=== PATIENT | male | born 1990 | race Caucasian/White ===

== ENCOUNTER 2017-04-01 05:30 | Emergency (ER) | payer MEDICAID, OTHER, SELFPAY ==
[~2017-04-01] VITALS: Ht 185.4 cm; Wt 145.4 kg
[2017-04-01] MEDS ORDERED: OMEP20CA3 PO (05:36)
[2017-04-01] MEDS ORDERED: predniSONE 20 MG TAB PO ONE (06:15)
[2017-04-01] MEDS ORDERED: AZITHROMYCIN 250 MG TAB PO ONE (06:15)
[2017-04-01] MEDS: IPRATROPIUM 0.5MG/ALBUTEROL 2.5MG INH SOL UD 3ML (DUONEB)(J7620) NEB PRN ×2 (06:22→06:27)
[2017-04-01 06:44] VITALS: BP 143/89
[2017-04-01] MEDS ORDERED: AZIT-12 PO (06:49)
[2017-04-01] MEDS ORDERED: PRED20TA PO (06:49)
[2017-04-01] MEDS ORDERED: VENTAER IN (06:49)
--- NOTE | 2017-04-01 07:55 | REP ---
PA and lateral chest: There are no comparisons. The lung hutson are clear. The cardiac size is normal The austyn, mediastinum, and bony thorax are unremarkable. Impression: Negative PA and lateral chest. Signed by Panfilo Vazquez MD 04/01/2017 07:47 A
== END 2017-04-01 06:53 | disposition home or self-care (01) ==
LOC: M ED 05:30
DX: J20.9 Acute bronchitis, unspecified (principal); J06.9 Acute upper respiratory infection, unspecified; K21.9 Gastro-esophageal reflux disease without esophagitis; Z82.5 Family history of asthma and other chronic lower respiratory diseases; Z79.899 Other long term (current) drug therapy

== ENCOUNTER → 2017-05-07 | Outpatient (CLI) | payer MEDICAID | LOC: M RAD 15:23 | DX: J34.2 Deviated nasal septum (principal) | CPT/HCPCS: 70486 ==

== ENCOUNTER → 2017-05-23 | Outpatient (CLI) | payer OTHER | LOC: M SLEEP 20:02 | DX: G47.30 Sleep apnea, unspecified (principal) | CPT/HCPCS: 95810 ==

== ENCOUNTER → 2017-06-10 | Outpatient (CLI) | payer OTHER | LOC: M SLEEP 20:00 | DX: G47.33 Obstructive sleep apnea (adult) (pediatric) (principal) | CPT/HCPCS: 95811 ==

== ENCOUNTER → 2017-08-14 | Outpatient (REF) | payer OTHER ==
[2017-08-19 00:06] LABS: E001-IgE Cat Epith/Dander 0.24 kU/L (Class 0/I); E005-IgE Dog Dander 0.17 kU/L (Class 0/I); G002-IgE Bermuda Grass 2.01 kU/L (Class III); M001-IgE Penicillium chrysogen < 0.10 kU/L (Class 0); M002 IgE Cladosporium herbaru < 0.10 kU/L (Class 0); M003 IgE Aspergillus fumigatu < 0.10 kU/L (Class 0); M006-IgE Alternaria alternata < 0.10 kU/L (Class 0); T001-IgE Maple/Box Elder 0.38 kU/L (Class I); T003-IgE Common Silver Birch 1.38 kU/L (Class II); T006-IgE Cedar, Mountain 0.15 kU/L (Class 0/I); T007-IgE Oak, White < 0.10 kU/L (Class 0); T008-IgE Elm, American < 0.10 kU/L (Class 0); T015-IgE Ash, White < 0.10 kU/L (Class 0); T041-IgE Hickory, White < 0.10 kU/L (Class 0); T070-IgE White Mulberry < 0.10 kU/L (Class 0); W001-IgE Ragweed, Short 1.11 kU/L (Class II); W009-IgE Plantain, English 0.11 kU/L (Class 0/I); W014-IgE Pigweed, Rough < 0.10 kU/L (Class 0); W018-IgE Sheep Sorrel 0.11 kU/L (Class 0/I)
== END ==
LOC: M LAB REF 13:20
DX: R09.82 Postnasal drip (principal)
CPT/HCPCS: 82785

== ENCOUNTER 2017-11-25 04:55 | Emergency (ER) | payer OTHER ==
[2017-11-25] MEDS: NS 1,000 ML IV ×2 (05:15)
[2017-11-25] MEDS: METOCLOPRAMIDE INJ 10MG/2ML VIAL (J2765) IV ×2 (05:45)
[2017-11-25] MEDS: MORPHINE 10 MG/ML 1ML VIAL (J2270) IV ×2 (05:45)
[2017-11-25] MEDS: GASTROGRAFIN SOLUTION 30ML PO ×4 (06:00→06:30)
[2017-11-25 06:18] LABS: BASO % 0.3 % (0.0-1.0); EOS # 0.1 10^3/uL (0.0-0.50); EOS % 1.5 % (0.0-3.0); HEMOGLOBIN 13.8 g/dl (13.5-17.5); IMMATURE GRANULOCYTE % 0.3 % (0-3.0); LYMPH # 1.7 10^3/uL (1.5-6.5); LYMPH % 28.1 % (24.0-44.0); MEAN CORPUSCULAR HEMOGLOBIN 29.1 pg (27.0-33.0); MEAN CORPUSCULAR HGB CONC 33.7 g/dl (32.0-36.5); MEAN CORPUSCULAR VOLUME 86.3 fl (80.0-96.0); MONO # 0.6 10^3/uL (0.0-0.8); MONO % 9.5 % (0.0-5.0); NEUTROPHILS # 3.7 10^3/uL (1.8-7.7); NEUTROPHILS % 60.3 % (36.0-66.0); PLATELET COUNT, AUTOMATED 193 10^3/uL (150-450); RED BLOOD COUNT 4.75 10^6/uL (4.30-6.10); RED CELL DISTRIBUTION WIDTH 12.8 % (11.5-14.5); WHITE BLOOD COUNT 6.1 10^3/uL (4.0-10.0)
[2017-11-25 06:33] LABS: ALBUMIN 3.3 GM/DL (3.2-5.2); ALKALINE PHOSPHATASE 94 U/L (45-117); ALT/SGPT 69 U/L (12-78); ANION GAP 6 MEQ/L (8-16); AST/SGOT 38 U/L (7-37); BILIRUBIN,DIRECT 0.2 MG/DL (0.0-0.2); BLOOD UREA NITROGEN 10 MG/DL (7-18); CALCIUM LEVEL 8.4 MG/DL (8.5-10.1); CARBON DIOXIDE LEVEL 29 MEQ/L (21-32); CHLORIDE LEVEL 107 MEQ/L (98-107); CREATININE FOR GFR 0.95 MG/DL (0.70-1.30); GLOMERULAR FILTRATION RATE > 60.0 (>60); GLUCOSE, FASTING 137 MG/DL (70-100); LIPASE 82 U/L (73-393); POTASSIUM SERUM 3.5 MEQ/L (3.5-5.1); SODIUM LEVEL 142 MEQ/L (136-145); TOTAL PROTEIN 7.4 GM/DL (6.4-8.2)
[2017-11-25] MEDS: GI COCKTAIL 50ML BTL(HYOSCYAMINE/MAALOX/LIDOCAINE VISCOUS)(1:3:1) PO ×2 (06:45)
[2017-11-25] MEDS: PANTOPRAZOLE 40MG INJ (PROTONIX) (C9113) IV ×2 (06:45)
[2017-11-25] MEDS ORDERED: ISOVUE-370 76% 100ML VIAL (Q9967) As Ordered ×2 (07:15)
[2017-11-25] MEDS: SUCRALFATE SUSP 1GM/10ML UD PO ×2 (07:40)
== END 2017-11-25 09:59 | disposition home or self-care (01) ==
LOC: M ED 04:55
DX: R10.13 Epigastric pain (principal); K21.9 Gastro-esophageal reflux disease without esophagitis
CPT/HCPCS: C9113

== ENCOUNTER → 2018-12-11 | Outpatient (CLI) | payer OTHER ==
[~2018-12-11] MED LIST: AZIT-12 PO; MONT10TA2; OMEP20CA4 PO; PEPC1TAB5 PO; PRED20TA PO; RANI150T; SUCR1SS PO; VENTAER IN
--- NOTE | 2018-12-12 09:06 | REP ---
MRI of the thoracic spine without contrast Clinical indication: Pain and thoracic spine. Comparison: None Technique: MRI of the thoracic spine was performed utilizing an sagittal T1 72 and STIR and axial T1 and T2 weighted imaging. No intravenous contrast was administered. Findings: There is patient motion artifact which degrades image quality and decreases the sensitivity of the study. Within this limitation, there is no gross signal abnormality within the visualized spinal cord. There is loss of thoracic kyphosis. There is normal alignment. There are multilevel disc bulges throughout the thoracic spine, most notably at T2-T3, T4-T5, T5-T6 and T8-T9. There is no bone marrow edema. The paraspinal soft tissues are within normal limits. C7-T1, T1-T2, T2-T3: No significant spinal canal stenosis or neural foraminal compromise. T3-T4, T4-T5: Central disc protrusion abutting the ventral thecal sac. T5-T6, T6-T7: Central disc protrusion indenting the ventral thecal sac. T7-T8: Small central disc protrusion. T8-T9: Right paracentral disc protrusion effacing the right anterolateral thecal sac, narrowing of the spinal canal and partially effacing the exiting nerve root. T9-T10: T10-T11, T11-T12, T12-L1: No significant spinal canal stenosis or neural foraminal compromise. Impression: Patient motion artifact which degrades image quality and decreases the sensitivity of the study. Within this limitation, no gross signal abnormality within the spinal cord. Multilevel thoracic spondylosis most notably at T8-T9 with right paracentral disc protrusion effacing of the anterolateral thecal sac, narrowing the spinal canal and partially effacing the right exiting nerve root. Central disc protrusions at T3-T8. Electronically Signed by Jose Kwan MD 12/12/2018 08:57 A
== END ==
LOC: M RAD 18:00
PROVIDERS: ATTEND Family Medicine
DX: M51.24 Other intervertebral disc displacement, thoracic region (principal)

== ENCOUNTER → 2019-01-15 | Outpatient (REF) | payer OTHER, MEDICAID ==
[2019-01-15 12:06] LABS: APPEARANCE, URINE CLEAR (CLEAR); BACTERIA, URINE AUTO NEGATIVE (NEGATIVE); BILIRUBIN, URINE AUTO NEGATIVE (NEGATIVE); BLOOD, URINE BLOOD 1+ (NEGATIVE); COLOR, URINE YELLOW (YELLOW); GLUCOSE, URINE (UA) AUTO NEGATIVE (NEGATIVE); KETONE, URINE AUTO NEGATIVE (NEGATIVE); LEUKOCYTE ESTERASE, URINE AUTO NEGATIVE (NEGATIVE); NITRITE, URINE AUTO NEGATIVE (NEGATIVE); PROTEIN, URINE AUTO NEGATIVE (NEGATIVE); RBC, URINE AUTO 1 /HPF (0-3); SPECIFIC GRAVITY URINE AUTO 1.024 (1.002-1.035); SQUAMOUS EPITHELIAL CELL UR AU 0 /HPF (0-6); UROBILINOGEN, URINE AUTO 0.2 mg/dL (0.0-2.0); WBC, URINE AUTO 2 /HPF (0-3)
[2019-01-15 17:28] LABS: ALBUMIN 3.8 GM/DL (3.2-5.2); ALT/SGPT 73 U/L (12-78); BLOOD UREA NITROGEN 12 MG/DL (7-18); CALCIUM LEVEL 8.5 MG/DL (8.5-10.1); CARBON DIOXIDE LEVEL 30 MEQ/L (21-32); CHLORIDE LEVEL 104 MEQ/L (98-107); CHOLESTEROL LEVEL 162 MG/DL (<200); CREATININE FOR GFR 0.88 MG/DL (0.70-1.30); FREE T4 1.11 NG/DL (0.76-1.46); GLOMERULAR FILTRATION RATE > 60.0 (>60); GLUCOSE, FASTING 89 MG/DL (70-100); HDL CHOLESTEROL 26 MG/DL (>40); LDL CHOLESTEROL 81 MG/DL (<100); NON-HDL-C 136 MG/DL; POTASSIUM SERUM 3.8 MEQ/L (3.5-5.1); SODIUM LEVEL 140 MEQ/L (136-145); TOTAL PROTEIN 7.6 GM/DL (6.4-8.2); TRIGLYCERIDES LEVEL 276 MG/DL (<150)
[2019-01-15 17:30] LABS: TOTAL 25(OH) VITAMIN D 16.4 NG/ML (30.0-100.0)
[2019-01-15 17:36] LABS: HEMOGLOBIN A1c 5.5 %
[2019-01-15 18:31] LABS: BASO % 0.7 % (0.0-1.0); EOS # 0.2 10^3/uL (0.0-0.5); EOS % 3.9 % (0.0-3.0); HEMATOCRIT 44.3 % (42.0-52.0); HEMOGLOBIN 14.7 g/dl (13.5-17.5); LYMPH # 1.8 10^3/uL (1.5-5.0); LYMPH % 31.1 % (24.0-44.0); MEAN CORPUSCULAR HEMOGLOBIN 29.8 pg (27.0-33.0); MEAN CORPUSCULAR HGB CONC 33.2 g/dl (32.0-36.5); MEAN CORPUSCULAR VOLUME 89.9 fl (80.0-96.0); MONO # 0.5 10^3/uL (0.0-0.8); MONO % 8.3 % (0.0-5.0); NEUTROPHILS # 3.1 10^3/uL (1.5-8.5); NEUTROPHILS % 55.8 % (36.0-66.0); PLATELET COUNT, AUTOMATED 227 10^3/uL (150-450); RED BLOOD COUNT 4.93 10^6/uL (4.30-6.10); WHITE BLOOD COUNT 5.6 10^3/uL (4.0-10.0)
== END ==
LOC: M LAB REF 11:26
PROVIDERS: ATTEND Family Medicine
DX: Z13.228 Encounter for screening for other metabolic disorders (principal)

== ENCOUNTER → 2019-08-01 | Outpatient (REF) | payer OTHER, MEDICAID ==
[~2019-08-01] MED LIST changes: -MONT10TA2; +MONT10TA4; +OMEP1CAP73 PO; -OMEP20CA4 PO
[2019-08-01 13:25] LABS: BASO % 0.7 % (0.0-1.0); EOS # 0.1 10^3/uL (0.0-0.5); EOS % 1.3 % (0.0-3.0); HEMATOCRIT 46.1 % (42.0-52.0); HEMOGLOBIN 15.1 g/dl (13.5-17.5); LYMPH # 1.6 10^3/uL (1.5-5.0); LYMPH % 29.7 % (24.0-44.0); MEAN CORPUSCULAR HEMOGLOBIN 29.3 pg (27.0-33.0); MEAN CORPUSCULAR HGB CONC 32.8 g/dl (32.0-36.5); MEAN CORPUSCULAR VOLUME 89.5 fl (80.0-96.0); MONO # 0.5 10^3/uL (0.0-0.8); MONO % 8.3 % (0.0-5.0); NEUTROPHILS # 3.2 10^3/uL (1.5-8.5); NEUTROPHILS % 59.4 % (36.0-66.0); PLATELET COUNT, AUTOMATED 217 10^3/uL (150-450); RED BLOOD COUNT 5.15 10^6/uL (4.30-6.10); WHITE BLOOD COUNT 5.4 10^3/uL (4.0-10.0)
[2019-08-01 13:29] LABS: BLOOD UREA NITROGEN 12 MG/DL (7-18); CALCIUM LEVEL 9.1 MG/DL (8.5-10.1); CARBON DIOXIDE LEVEL 29 MEQ/L (21-32); CHLORIDE LEVEL 104 MEQ/L (98-107); GLOMERULAR FILTRATION RATE > 60.0 (>60); GLUCOSE, FASTING 123 MG/DL (70-100); POTASSIUM SERUM 4.2 MEQ/L (3.5-5.1); SODIUM LEVEL 139 MEQ/L (136-145)
[2019-08-01 13:30] LABS: ALBUMIN 3.8 GM/DL (3.2-5.2); ALT/SGPT 84 U/L (12-78); CHOLESTEROL LEVEL 182 MG/DL (<200); FREE T4 1.09 NG/DL (0.76-1.46); HDL CHOLESTEROL 26 MG/DL (>40); LDL CHOLESTEROL 106 MG/DL (<100); NON-HDL-C 156 MG/DL; TOTAL PROTEIN 7.7 GM/DL (6.4-8.2); TRIGLYCERIDES LEVEL 252 MG/DL (<150)
== END ==
LOC: M LAB REF 12:50
PROVIDERS: ATTEND Physician Assistant
DX: E88.81 Metabolic syndrome and other insulin resistance (principal); E55.9 Vitamin D deficiency, unspecified; Z13.228 Encounter for screening for other metabolic disorders; R03.0 Elevated blood-pressure reading, without diagnosis of hypertension; K21.9 Gastro-esophageal reflux disease without esophagitis; Z68.41 Body mass index [BMI] 40.0-44.9, adult; E66.01 Morbid (severe) obesity due to excess calories

== ENCOUNTER → 2019-08-15 | Outpatient (REF) | payer OTHER, MEDICAID ==
[2019-08-15 13:10] LABS: HEMOGLOBIN A1c 5.6 %
== END ==
LOC: M LAB REF 11:29
PROVIDERS: ATTEND Physician Assistant
DX: R73.01 Impaired fasting glucose (principal)

== ENCOUNTER → 2019-09-26 | Outpatient (REF) | payer OTHER, MEDICAID ==
[2019-09-26 17:56] LABS: ALBUMIN 3.4 GM/DL (3.2-5.2); ALT/SGPT 78 U/L (12-78); BILIRUBIN,TOTAL 0.9 MG/DL (0.2-1.0); BLOOD UREA NITROGEN 12 MG/DL (7-18); CALCIUM LEVEL 8.6 MG/DL (8.5-10.1); CARBON DIOXIDE LEVEL 30 MEQ/L (21-32); CHLORIDE LEVEL 103 MEQ/L (98-107); CREATININE FOR GFR 0.89 MG/DL (0.70-1.30); FREE T4 1.33 NG/DL (0.76-1.46); GLOMERULAR FILTRATION RATE > 60.0 (>60); GLUCOSE, FASTING 131 MG/DL (70-100); SODIUM LEVEL 139 MEQ/L (136-145); TOTAL 25(OH) VITAMIN D 25.4 NG/ML (30.0-100.0); TOTAL PROTEIN 7.1 GM/DL (6.4-8.2)
== END ==
LOC: M LAB REF 17:29
PROVIDERS: ATTEND Physician Assistant
DX: R74.8 Abnormal levels of other serum enzymes (principal); E03.9 Hypothyroidism, unspecified

== ENCOUNTER 2020-05-08 09:52 | Day surgery (SDC) | payer MEDICAID, OTHER ==
[~2020-05-08] VITALS: Ht 182.9 cm; Wt 169.6 kg
[~2020-05-08 09:52] MED LIST changes: +MONT10TA10; -MONT10TA4
[2020-05-08] MEDS ORDERED: LISI10TA22 PO (10:11)
[2020-05-08] MEDS ORDERED: D 202000 PO (10:11)
[2020-05-08] MEDS ORDERED: LORA-674 PO (10:11)
[2020-05-08] MEDS ORDERED: LEVO25TA5 PO (10:11)
[2020-05-08] MEDS ORDERED: NS 1,000 ML IV ONE (10:30)
[2020-05-08] MEDS ORDERED: ONDANSETRON 4MG/2ML VIAL IV ONE (10:30)
[2020-05-08] MEDS ORDERED: ACETAMINOPHEN 500 MG TAB PO ONE (10:30)
[2020-05-08] MEDS ORDERED: ISOVUE-370 76% 100ML VIAL As Ordered ONE (10:47)
[2020-05-08 10:50] LABS: BASO % 0.6 % (0.0-1.0); EOS # 0.2 10^3/uL (0.0-0.5); EOS % 3.2 % (0.0-3.0); HEMATOCRIT 43.9 % (42.0-52.0); HEMOGLOBIN 14.2 g/dl (13.5-17.5); LYMPH # 1.5 10^3/uL (1.5-5.0); LYMPH % 23.9 % (24.0-44.0); MEAN CORPUSCULAR HGB CONC 32.3 g/dl (32.0-36.5); MEAN CORPUSCULAR VOLUME 89.8 fl (80.0-96.0); MONO # 0.5 10^3/uL (0.0-0.8); MONO % 7.8 % (0.0-5.0); NEUTROPHILS % 64.2 % (36.0-66.0); PLATELET COUNT, AUTOMATED 213 10^3/uL (150-450); RED BLOOD COUNT 4.89 10^6/uL (4.30-6.10); WHITE BLOOD COUNT 6.3 10^3/uL (4.0-10.0)
[2020-05-08 11:16] LABS: ALBUMIN 3.5 GM/DL (3.2-5.2); BILIRUBIN,DIRECT 0.3 MG/DL (0.0-0.2); BILIRUBIN,TOTAL 1.4 MG/DL (0.2-1.0); TOTAL PROTEIN 7.2 GM/DL (6.4-8.2)
--- NOTE | 2020-05-08 11:26 | REP ---
INDICATION: RLQ pain, r/o appendicitis. COMPARISON: 11/25/2017 TECHNIQUE: 100 cc Isovue 370 FINDINGS: The lung bases are clear. The liver, gallbladder, spleen, pancreas, adrenal glands, and kidneys are again seen to be within normal limits. The abdominal aorta and para-aortic regions are again seen to be within normal limits. There is no free fluid or free air. There is no mass or adenopathy. There is dilatation of the appendix seen in conjunction with fatty infiltration in the mesoappendix. The osseous structures are stable and intact. IMPRESSION: Appendicitis <Electronically signed by Ferny Villanueva > 05/08/20 1122
[2020-05-08] MEDS ORDERED: PIPERACILLIN/TAZOBACTAM SOD 4.5 GM in D5W MINI-BAG PLUS 50 ML IV ONE (11:30)
[2020-05-08] MEDS ORDERED: NS 4,090 ML in IV 1 EA IV ONE (11:45)
[2020-05-08] MEDS ORDERED: MORPHINE 4 MG/ML 1ML VIAL/SYRINGE (J2270) IV ONE (11:45)
[2020-05-08] MEDS ORDERED: OMEP-221 PO (11:47)
[2020-05-08 12:41] LABS: RSV AMPLIFICATION NEGATIVE (NEGATIVE)
[2020-05-08] MEDS ORDERED: LIDOCAINE 2% 100MG/5ML SDV (FOR ANES.) As Ordered ONE (17:34)
[2020-05-08] MEDS ORDERED: fentaNYL 250 MCG/5 ML INJECTION (J3010) As Ordered ONE (17:34)
[2020-05-08] MEDS ORDERED: ROCURONIUM BROMIDE 50 MG/5 ML VIAL As Ordered ONE ×2 (17:34→18:05)
[2020-05-08] MEDS ORDERED: propofoL 200 MG/20 ML VIAL As Ordered ONE ×2 (17:34→17:36)
[2020-05-08] MEDS ORDERED: MIDAZOLAM INJ 2MG/2ML VIAL (J2250 PER 1MG) As Ordered ONE (17:34)
[2020-05-08] MEDS ORDERED: BUPIVACAINE/EPIN 0.25% 30 ML VIAL As Ordered ONE (17:40)
[2020-05-08] MEDS ORDERED: ZOSYN 3.375GM VIAL (J2543) As Ordered ONE (17:40)
[2020-05-08] MEDS ORDERED: ONDANSETRON 4MG/2ML VIAL IV PRN ×2 (17:45→19:00)
[2020-05-08] MEDS ORDERED: NORCO, ANEXSIA 5/325MG TABLET (HYDROcodone/ACETAMINOPHEN) PO PRN ×2 (17:45)
[2020-05-08] MEDS ORDERED: KETOROLAC 30 MG/ML 1ML VIAL IV PRN (17:45)
[2020-05-08] MEDS ORDERED: dexameTHASONE 4 MG/ML 1ML VIAL (J1100 PER 1MG) As Ordered ONE (17:59)
[2020-05-08] MEDS ORDERED: ONDANSETRON 4MG/2ML VIAL As Ordered ONE (18:10)
[2020-05-08] MEDS ORDERED: KETOROLAC 60MG 2ML VIAL As Ordered ONE (18:10)
[2020-05-08] MEDS ORDERED: ACETAMINOPHEN 1000MG 100ML IV BTL (OFIRMEV) (J0131 PER 10MG) As Ordered ONE (18:11)
[2020-05-08] MEDS ORDERED: METOCLOPRAMIDE INJ 10MG/2ML VIAL (J2765 PER 1) As Ordered ONE (18:11)
[2020-05-08] MEDS ORDERED: HYDR-3715 PO (18:49)
[2020-05-08] MEDS ORDERED: oxyCODONE 5MG TAB PO PRN (19:00)
[2020-05-08] MEDS ORDERED: fentaNYL 100 MCG/2 ML INJECTION (J3010) IV PRN (19:00)
[2020-05-08] MEDS ORDERED: LR 1,000 ML IV SCH (19:00)
[2020-05-08] MEDS ORDERED: HYDROMORPHONE HCL 0.5 MG/ 0.5 ML SYRINGE (J1170 PER 1) IV PRN (19:00)
[2020-05-08] MEDS ORDERED: oxyCODONE 5MG TAB As Ordered ONE (19:01)
[2020-05-08 19:50] VITALS: BP 171/94
[2020-05-08] MEDS: NS 1,000 ML IV SCH (20:00)
[2020-05-08] MEDS: PANTOPRAZOLE 40MG TAB (PROTONIX) PO SCH (20:01)
[2020-05-08] MEDS: SENOKOT S TAB PO SCH (20:09)
[2020-05-08 20:29] VITALS: BP 171/98
[2020-05-08 21:25] VITALS: BP 167/98
[2020-05-08 22:30] VITALS: BP 158/86
[2020-05-08 23:30] VITALS: BP 152/84
[2020-05-08] MEDS: PIPERACILLIN/TAZOBACTAM SOD 3.375 GM in D5W MINI-BAG PLUS 50 ML IV SCH (23:38)
[2020-05-09 01:34] VITALS: BP 115/71
[2020-05-09] MEDS: PIPERACILLIN/TAZOBACTAM SOD 3.375 GM in D5W MINI-BAG PLUS 50 ML IV SCH (05:31)
[2020-05-09] MEDS: NS 1,000 ML IV SCH (05:32)
[2020-05-09] MEDS ORDERED: LEVOTHYROXINE 25MCG TABLET (0.025MG) PO SCH (06:00)
[2020-05-09 06:19] VITALS: BP 136/99
[2020-05-09 08:37] LABS: BASO % 0.3 % (0.0-1.0); HEMATOCRIT 39.2 % (42.0-52.0); HEMOGLOBIN 12.7 g/dl (13.5-17.5); LYMPH # 0.8 10^3/uL (1.5-5.0); LYMPH % 10.8 % (24.0-44.0); MEAN CORPUSCULAR HEMOGLOBIN 28.9 pg (27.0-33.0); MEAN CORPUSCULAR HGB CONC 32.4 g/dl (32.0-36.5); MEAN CORPUSCULAR VOLUME 89.1 fl (80.0-96.0); MONO # 0.2 10^3/uL (0.0-0.8); MONO % 2.9 % (0.0-5.0); NEUTROPHILS # 6.1 10^3/uL (1.5-8.5); NEUTROPHILS % 85.6 % (36.0-66.0); PLATELET COUNT, AUTOMATED 221 10^3/uL (150-450); WHITE BLOOD COUNT 7.1 10^3/uL (4.0-10.0)
[2020-05-09 08:51] VITALS: BP 136/99
[2020-05-09] MEDS: SENOKOT S TAB PO SCH (08:51)
[2020-05-09] MEDS: PANTOPRAZOLE 40MG TAB (PROTONIX) PO SCH (08:51)
[2020-05-09] MEDS ORDERED: LORATADINE 10 MG TAB PO SCH (09:00)
--- NOTE | 2020-05-09 10:59 | HPE ---
HISTORY AND PHYSICAL DATE OF ADMISSION: 05/08/2020 CHIEF COMPLAINT: Abdominal pain. HISTORY OF PRESENT ILLNESS: The patient is a 29-year-old male who presents for right lower quadrant abdominal pain that started last evening. Pain has gotten progressively worse overnight and he came in this morning with concerns. He was found to have CT findings of appendicitis. He denies any nausea or vomiting. No fevers or chills. No problems with bowel movements other than some loose stools because he took some laxatives last evening. Denies any prior abdominal surgeries and no trauma to the abdomen. PAST MEDICAL HISTORY: 1. Obstructive sleep apnea. 2. Hypothyroidism. 3. Hypertension. PAST SURGICAL HISTORY: None. ALLERGIES: None. HOME MEDICATIONS: Please see medical record. SOCIAL HISTORY: Denies drug, alcohol or tobacco abuse. FAMILY HISTORY: Noncontributory. REVIEW OF SYSTEMS: As per positives and negatives as stated in the history of present illness (HPI). PHYSICAL EXAMINATION: GENERAL: Alert and oriented times three. No acute distress. VITAL SIGNS: Temperature 96.9, pulse 79, respirations 18, blood pressure 151/73, pulse oximetry 99% on room air. HEENT: Pupils are equal, round and reactive to light and accommodation. HEART: S1, S2. Regular rate and rhythm. LUNGS: Clear to auscultation bilaterally. ABDOMEN: Soft. Tender to palpation right lower quadrant with localized guarding. No rigidity. EXTREMITIES: No clubbing, cyanosis or edema. LABORATORY DATA: White count 6.3, hemoglobin 14.2, platelets 213. Lactic acid 3.3. COVID test negative. Sodium 137, potassium 3.6. IMAGING: CT abdomen and pelvis showed a dilated appendix with some fatty infiltration in the mesoappendix. ASSESSMENT AND PLAN: The patient is a 29-year-old male with signs and symptoms consistent with acute appendicitis. Recommend proceeding with laparoscopic, possible open, appendectomy. Risks and benefits of the procedure not limited to, but including bleeding, infection, hernia formation, damage to surrounding structures, the need for further surgery were discussed in detail with the patient. Informed consent was obtained. Procedure was planned. Postoperatively, he would prefer to stay overnight since he will not have a ride. Will plan to have his discharge ready to go and he will be discharged home first thing in the morning.
--- NOTE | 2020-05-09 17:47 | RO ---
OPERATIVE NOTE DATE OF OPERATION: 05/08/2020 PREOPERATIVE DIAGNOSIS: Acute appendicitis. POSTOPERATIVE DIAGNOSIS: Acute appendicitis. PROCEDURE: Laparoscopic appendectomy. SURGEON: Panfilo Vargas DO COMPONENT PREP OPERATOR: None ANESTHESIA: General ESTIMATED BLOOD LOSS: 5 mL COMPLICATIONS: None. INDICATIONS FOR PROCEDURE: The patient is a 29-year-old male who presents with signs and symptoms consistent with acute appendicitis. Recommendation was to proceed with laparoscopic appendectomy. Risks and benefits of the procedure not limited to but including bleeding, infection, hernia formation, damage to surrounding structures, need for further surgery were discussed in detail to the patient. Informed consent was obtained and the procedure was planned. DESCRIPTION OF PROCEDURE: The patient was brought back to operating room 3. After sufficient sedation, the abdomen was sterilely prepped and draped. Next, a timeout was done to confirm proper patient and proper procedure. Following that, a 5 mm incision was made in the left upper quadrant. A Veress needle was inserted and the abdomen was insufflated to 15 mmHg. The Veress needle was then removed and a 5 mm OptiView port was used to gain access to the abdomen. Once the abdomen was entered, an 8 mm was placed supraumbilically in the midline, another 5 mm suprapubically in the midline. Next, the abdomen was examined. The appendix was identified. The appendix was elevated into the air. The mesoappendix was dissected free using the Enseal. Once the base of the appendix was reached, it was ligated with 2 PDS endoloops. The appendix was then amputated using the Enseal, placed inside a 5 EndoCatch bag and brought out through the 8 mm port site. Once the appendix was out, the fascia at the umbilical port site was closed with an 0 Vicryl suture using a Florentino-Sweta needle. The abdomen was then desufflated. The skin incisions were closed with 4-0 Vicryl subcuticular sutures. The abdomen was cleaned and dried. Steri-Strips, 4x4 and tape were applied, this ending the procedure.
== END 2020-05-09 10:21 | disposition home or self-care (01) ==
LOC: M ED 09:52 → M SDC 09:53 → M MS5PR 15:05 → M SDC 05-09 10:21
PROVIDERS: ATTEND Surgery
DX: K35.890 Other acute appendicitis without perforation or gangrene (principal); E66.9 Obesity, unspecified; I10 Essential (primary) hypertension; E03.9 Hypothyroidism, unspecified; G47.33 Obstructive sleep apnea (adult) (pediatric); K21.9 Gastro-esophageal reflux disease without esophagitis; Z79.899 Other long term (current) drug therapy
CPT/HCPCS: 36415; 44970; 80047; 80076; 81001; 83605; 83690; 85025; 87631; 88304; 96361; 96365; 96366; 96375; 96376; 99284; J0131; J1100; J1885; J2250; J2270; J2405; J2543; J2765; J3010; Q9967

== ENCOUNTER → 2020-07-07 | Outpatient (REF) | payer OTHER ==
[~2020-07-07] MED LIST changes: +D 202000 PO; +HYDR-3715 PO; +LEVO25TA5 PO; +LISI10TA22 PO; +LORA-674 PO; +OMEP-221 PO
[2020-07-07 16:27] LABS: ALBUMIN 3.7 GM/DL (3.2-5.2); ALT/SGPT 74 U/L (12-78); BILIRUBIN,TOTAL 1.1 MG/DL (0.2-1.0); BLOOD UREA NITROGEN 11 MG/DL (7-18); CALCIUM LEVEL 9.1 MG/DL (8.5-10.1); CARBON DIOXIDE LEVEL 31 MEQ/L (21-32); CHLORIDE LEVEL 101 MEQ/L (98-107); CREATININE FOR GFR 0.79 MG/DL (0.70-1.30); GLOMERULAR FILTRATION RATE > 60.0 (>60); GLUCOSE, FASTING 104 MG/DL (70-100); POTASSIUM SERUM 4.8 MEQ/L (3.5-5.1); SODIUM LEVEL 137 MEQ/L (136-145); TOTAL PROTEIN 7.6 GM/DL (6.4-8.2)
[2020-07-07 16:28] LABS: TOTAL 25(OH) VITAMIN D 26.8 NG/ML (30.0-100.0)
[2020-07-07 16:29] LABS: FOLATE 8.9 NG/ML; VITAMIN B12 LEVEL 389 PG/ML
== END ==
LOC: M LAB REF 15:35
PROVIDERS: ATTEND Family Medicine Addiction Medicine
DX: R73.01 Impaired fasting glucose (principal); E03.9 Hypothyroidism, unspecified

== ENCOUNTER → 2020-09-14 | Outpatient (CLI) | payer OTHER ==
[2020-09-14 13:45] LABS: HEMOGLOBIN A1c 5.7 %
[2020-09-14 14:01] LABS: ALBUMIN 3.6 GM/DL (3.2-5.2); ALT/SGPT 85 U/L (12-78); BILIRUBIN,TOTAL 0.9 MG/DL (0.2-1.0); BLOOD UREA NITROGEN 8 MG/DL (7-18); CALCIUM LEVEL 8.9 MG/DL (8.5-10.1); CARBON DIOXIDE LEVEL 29 MEQ/L (21-32); CHLORIDE LEVEL 103 MEQ/L (98-107); CREATININE FOR GFR 0.79 MG/DL (0.70-1.30); GLOMERULAR FILTRATION RATE > 60.0 (>60); GLUCOSE, FASTING 98 MG/DL (70-100); POTASSIUM SERUM 4.4 MEQ/L (3.5-5.1); RHEUMATOID FACTOR QUANT < 10.0 IU/ML (<15.0); SODIUM LEVEL 138 MEQ/L (136-145); TOTAL PROTEIN 7.2 GM/DL (6.4-8.2)
[2020-09-14 14:02] LABS: FOLATE 5.3 NG/ML
[2020-09-14 14:56] LABS: VITAMIN B12 LEVEL 316 PG/ML
[2020-09-15 13:40] LABS: ALPHA-1-GLOBULIN % 4.5 % (2.9-4.9); ALPHA-2-GLOBULINS % 10.7 % (7.1-11.8); BETA-1-GLOBULINS % 6.5 % (4.7-7.2); BETA-2-GLOBULINS % 5.4 % (3.2-6.5); GAMMA GLOBULIN % 18.9 % (11.1-18.8)
[2020-09-15 13:41] LABS: ALBUMIN 3.89 GM/DL (3.29-5.55); ALPHA-1-GLOBULINS 0.32 GM/DL (0.17-0.41); ALPHA-2-GLOBULINS 0.77 GM/DL (0.42-0.99); BETA-1-GLOBULINS 0.47 GM/DL (0.28-0.60); BETA-2-GLOBULINS 0.39 GM/DL (0.19-0.55); GAMMA GLOBULINS 1.36 GM/DL (0.65-1.58)
== END ==
LOC: M WUC 10:23
PROVIDERS: ATTEND Psychiatry & Neurology Neurology
DX: G62.9 Polyneuropathy, unspecified (principal)

== ENCOUNTER → 2021-04-04 | Outpatient (CLI) | payer OTHER ==
[~2021-04-04] MED LIST changes: -D 202000 PO; -MONT10TA10; +MONT10TA97; -OMEP-221 PO; +OMEP40CA5 PO; +VITA200032 PO
== END ==
LOC: M RAD 14:24
PROVIDERS: ATTEND Surgery
DX: R22.1 Localized swelling, mass and lump, neck (principal)

== ENCOUNTER → 2021-08-04 | Outpatient (REF) | payer OTHER | LOC: M LAB REF 16:25 | PROVIDERS: ATTEND Physician Assistant | DX: R50.9 Fever, unspecified (principal); J06.9 Acute upper respiratory infection, unspecified ==

== ENCOUNTER → 2021-12-02 | Outpatient (CLI) | payer OTHER | LOC: M PAIN 13:00 | PROVIDERS: ATTEND Nurse Practitioner Family | DX: M79.18 Myalgia, other site (principal); M54.50 Low back pain, unspecified; M54.6 Pain in thoracic spine; E03.9 Hypothyroidism, unspecified; J30.1 Allergic rhinitis due to pollen; Z79.890 Hormone replacement therapy; Z79.899 Other long term (current) drug therapy; Z87.891 Personal history of nicotine dependence ==

== ENCOUNTER → 2022-02-20 | Outpatient (CLI) | payer OTHER | LOC: M LABSMTC 10:12 | PROVIDERS: ATTEND Anesthesiology | DX: Z01.812 Encounter for preprocedural laboratory examination (principal); Z11.52 Encounter for screening for COVID-19 ==

== ENCOUNTER → 2022-02-24 | Outpatient (CLI) | payer OTHER ==
[~2022-02-24] MED LIST changes: +BUPIVACAINE HCL 0.25% 10ML VIAL As Ordered ONE; +BUPIVACAINE HCL 0.25% 30ML VIAL As Ordered ONE; +NORCO, ANEXSIA 5/325MG TABLET (HYDROcodone/ACETAMINOPHEN) As Ordered ONE; +TRIAMCINOLONE ACETONIDE SUSP 40 MG/ML VIAL (J3301) As Ordered ONE; +diazePAM 5MG TABLET As Ordered ONE
== END ==
LOC: M PAIN 15:00
PROVIDERS: ATTEND Anesthesiology
DX: M79.18 Myalgia, other site (principal); M54.50 Low back pain, unspecified; M54.6 Pain in thoracic spine; E03.9 Hypothyroidism, unspecified; Z79.890 Hormone replacement therapy; Z87.891 Personal history of nicotine dependence; J30.1 Allergic rhinitis due to pollen
CPT/HCPCS: 20552; J3301

== ENCOUNTER → 2022-05-18 | Outpatient (REF) | payer OTHER ==
[~2022-05-18] MED LIST changes: -BUPIVACAINE HCL 0.25% 10ML VIAL As Ordered ONE; -BUPIVACAINE HCL 0.25% 30ML VIAL As Ordered ONE; -NORCO, ANEXSIA 5/325MG TABLET (HYDROcodone/ACETAMINOPHEN) As Ordered ONE; -TRIAMCINOLONE ACETONIDE SUSP 40 MG/ML VIAL (J3301) As Ordered ONE; -diazePAM 5MG TABLET As Ordered ONE
== END ==
LOC: M LAB REF 12:45
PROVIDERS: ATTEND Family Medicine Addiction Medicine
DX: J35.01 Chronic tonsillitis (principal)

== ENCOUNTER → 2022-08-03 | Outpatient (CLI) | payer OTHER | LOC: M PAIN 09:45 | PROVIDERS: ATTEND Nurse Practitioner Family | DX: M79.18 Myalgia, other site (principal); M54.50 Low back pain, unspecified; E03.9 Hypothyroidism, unspecified; J30.1 Allergic rhinitis due to pollen; Z79.890 Hormone replacement therapy; Z79.899 Other long term (current) drug therapy ==

== ENCOUNTER → 2022-09-22 | Outpatient (CLI) | payer OTHER ==
[~2022-09-22] MED LIST changes: +TRIAMCINOLONE ACETONIDE SUSP 40MG/ML 1ML VIAL As Ordered ONE
== END ==
LOC: M PAIN 08:15
PROVIDERS: ATTEND Anesthesiology
DX: M79.18 Myalgia, other site (principal); G89.29 Other chronic pain; M54.50 Low back pain, unspecified; E03.9 Hypothyroidism, unspecified; J30.1 Allergic rhinitis due to pollen; Z79.890 Hormone replacement therapy; Z79.899 Other long term (current) drug therapy; Z87.891 Personal history of nicotine dependence
CPT/HCPCS: 20553; J3301; S0020

== ENCOUNTER → 2023-03-27 | Outpatient (CLI) | payer OTHER ==
[~2023-03-27] MED LIST changes: +LORA-1041 PO; -LORA-674 PO; -TRIAMCINOLONE ACETONIDE SUSP 40MG/ML 1ML VIAL As Ordered ONE
== END ==
LOC: M PAIN 16:00
PROVIDERS: ATTEND Nurse Practitioner Family
DX: M79.18 Myalgia, other site (principal); G89.29 Other chronic pain; M54.50 Low back pain, unspecified; Z79.890 Hormone replacement therapy; Z79.899 Other long term (current) drug therapy; Z87.891 Personal history of nicotine dependence

== ENCOUNTER → 2023-05-23 | Outpatient (CLI) | payer OTHER ==
[~2023-05-23] MED LIST changes: +TRIAMCINOLONE ACETONIDE SUSP 40MG/ML 1ML VIAL As Ordered ONE
== END ==
LOC: M PAIN 08:30
PROVIDERS: ATTEND Anesthesiology
DX: M79.18 Myalgia, other site (principal); G89.29 Other chronic pain; Z87.891 Personal history of nicotine dependence; E66.01 Morbid (severe) obesity due to excess calories; Z68.45 Body mass index [BMI] 70 or greater, adult; Z79.899 Other long term (current) drug therapy
CPT/HCPCS: 20552; J0665; J3301

== ENCOUNTER → 2023-06-21 | Outpatient (CLI) | payer OTHER ==
[~2023-06-21] MED LIST changes: -TRIAMCINOLONE ACETONIDE SUSP 40MG/ML 1ML VIAL As Ordered ONE
== END ==
LOC: M PAIN 15:45
PROVIDERS: ATTEND Anesthesiology
DX: M79.18 Myalgia, other site (principal); M54.6 Pain in thoracic spine; M54.50 Low back pain, unspecified; G89.29 Other chronic pain; E03.9 Hypothyroidism, unspecified; Z87.891 Personal history of nicotine dependence; Z79.890 Hormone replacement therapy; Z79.899 Other long term (current) drug therapy

== ENCOUNTER → 2023-08-30 | Outpatient (REF) | payer OTHER ==
[2023-08-30 13:25] LABS: ALBUMIN 3.9 G/DL (3.2-5.2); ALKALINE PHOSPHATASE 94 U/L (46-116); ALT/SGPT 46 U/L (7.0-40); AST/SGOT 32 U/L (<34); BILIRUBIN,TOTAL 1.6 MG/DL (0.3-1.2); BLOOD UREA NITROGEN 8 MG/DL (9-23); CALCIUM LEVEL 8.9 MG/DL (8.5-10.1); CARBON DIOXIDE LEVEL 28 MMOL/L (20-31); CHLORIDE LEVEL 103 MMOL/L (98-107); CHOLESTEROL LEVEL 188 MG/DL (<200); CHOLESTEROL RISK RATIO 6.66 (<5); CREATININE FOR GFR 0.87 MG/DL (0.70-1.30); GLOMERULAR FILTRATION RATE > 60.0 (>60); GLUCOSE, FASTING 97 MG/DL (60-100); HDL CHOLESTEROL 28.2 MG/DL (>40); LDL CHOLESTEROL 118.2 MG/DL (<100); NON-HDL-C 159.8 MG/DL; POTASSIUM SERUM 4.2 MMOL/L (3.5-5.1); SODIUM LEVEL 139 MMOL/L (136-145); TOTAL PROTEIN 7.5 G/DL (5.7-8.2); TRIGLYCERIDES LEVEL 208 MG/DL (<150)
[2023-08-30 13:28] LABS: THYROID STIMULATING HORMONE 3.154 uIU/ML (0.55-4.78)
== END ==
LOC: M LAB REF 11:59
PROVIDERS: ATTEND Family Medicine Addiction Medicine
DX: E03.9 Hypothyroidism, unspecified (principal)

== ENCOUNTER → 2023-09-12 | Outpatient (CLI) | payer OTHER | LOC: M RAD 10:07 | PROVIDERS: ATTEND Family Medicine Addiction Medicine | DX: J32.9 Chronic sinusitis, unspecified (principal) ==

== ENCOUNTER → 2023-11-06 | Outpatient (CLI) | payer OTHER | LOC: M PAIN 15:00 | PROVIDERS: ATTEND Nurse Practitioner Family | DX: M79.18 Myalgia, other site (principal); G89.29 Other chronic pain; M54.50 Low back pain, unspecified; M54.6 Pain in thoracic spine; Z87.891 Personal history of nicotine dependence; Z79.890 Hormone replacement therapy; Z79.899 Other long term (current) drug therapy ==

== ENCOUNTER → 2023-12-28 | Outpatient (CLI) | payer OTHER ==
[~2023-12-28] MED LIST changes: +TRIAMCINOLONE ACETONIDE SUSP 40MG/ML 1ML VIAL As Ordered ONE
== END ==
LOC: M PAIN 10:00
PROVIDERS: ATTEND Anesthesiology
DX: M79.18 Myalgia, other site (principal); G89.29 Other chronic pain; M54.50 Low back pain, unspecified; E03.9 Hypothyroidism, unspecified; Z87.891 Personal history of nicotine dependence; Z79.890 Hormone replacement therapy; Z79.899 Other long term (current) drug therapy
CPT/HCPCS: 20552; J0665; J3301

== ENCOUNTER 2025-01-11 03:23 | Observation (INO) | payer OTHER ==
[~2025-01-11] VITALS: Ht 182.9 cm; Wt 170.1 kg
[~2025-01-11 03:23] MED LIST changes: -TRIAMCINOLONE ACETONIDE SUSP 40MG/ML 1ML VIAL As Ordered ONE
[2025-01-11] MEDS: NS 500 ML IV ONE (08:20)
[2025-01-11] MEDS: LIDOCAINE 5% PATCH TD ONE (08:54)
[2025-01-11] MEDS: KETOROLAC 30 MG/ML 1 ML VIAL IV ONE ×2 (08:55→17:15)
[2025-01-11] MEDS: ACETAMINOPHEN *IV* 1,000 MG in IV 1 EA IV ONE (08:56)
[2025-01-11 12:23] LABS: PLATELET COUNT, AUTOMATED 154 10^3/uL (150-450)
[2025-01-11 12:56] LABS: ALT/SGPT 42 U/L (7.0-40); AST/SGOT 39 U/L (<34); CALCIUM LEVEL 8.2 MG/DL (8.5-10.1); CARBON DIOXIDE LEVEL 24 MMOL/L (20-31); CHLORIDE LEVEL 105 MMOL/L (98-107); CREATININE FOR GFR 0.71 MG/DL (0.70-1.30); GLOMERULAR FILTRATION RATE > 90.0 (>60); POTASSIUM SERUM 4.1 MMOL/L (3.5-5.1); SODIUM LEVEL 137 MMOL/L (136-145)
[2025-01-11] MEDS ORDERED: HYDROMORPHONE HCL 0.5 MG/0.5 ML SYRINGE IV PRN ×2 (14:35→16:40)
[2025-01-11] MEDS: HYDROMORPHONE HCL 0.5 MG/0.5 ML SYRINGE IV PRN (17:16)
[2025-01-11] MEDS ORDERED: ALBU8.5H INH (17:30)
[2025-01-11] MEDS ORDERED: ERGO500029 PO (17:32)
[2025-01-11] MEDS ORDERED: HOME MED LIST COMPLETE! XX SCH (17:35)
[2025-01-11 18:04] VITALS: BP 152/81; TEMP 97.8; O2SAT 98
[2025-01-11 20:00] VITALS: BP 128/59; TEMP 98.2; O2SAT 97
[2025-01-11] MEDS: GABAPENTIN 100 MG CAP PO SCH (20:30)
[2025-01-11] MEDS: HEPARIN SOD 5000 UNITS/ML 1 ML VIAL/SYRINGE SC SCH (20:31)
[2025-01-12 04:00] VITALS: BP 138/80; TEMP 96.8; O2SAT 100
[2025-01-12] MEDS: CYCLOBENZAPRINE 10 MG TABLET PO PRN (05:49)
[2025-01-12 07:14] LABS: PLATELET COUNT, AUTOMATED 163 10^3/uL (150-450)
[2025-01-12 07:45] LABS: CALCIUM LEVEL 8.4 MG/DL (8.5-10.1); CARBON DIOXIDE LEVEL 28 MMOL/L (20-31); CHLORIDE LEVEL 102 MMOL/L (98-107); CREATININE FOR GFR 0.81 MG/DL (0.70-1.30); GLOMERULAR FILTRATION RATE > 90.0 (>60); POTASSIUM SERUM 4.2 MMOL/L (3.5-5.1); SODIUM LEVEL 139 MMOL/L (136-145)
[2025-01-12] MEDS: LIDOCAINE 5% PATCH TD SCH (08:57)
[2025-01-12] MEDS: OMEPRAZOLE 20MG CAP PO SCH (11:46)
[2025-01-12 12:00] VITALS: BP 149/82; TEMP 98.4; O2SAT 98
[2025-01-12] MEDS: LEVOTHYROXINE 25 MCG TABLET (0.025MG) PO SCH (14:01)
[2025-01-12 19:31] VITALS: BP 135/84; TEMP 97.6; O2SAT 96
[2025-01-13 03:23] VITALS: BP 124/85; TEMP 97.2; O2SAT 97
[2025-01-13 08:23] VITALS: BP 154/95
[2025-01-13] MEDS ORDERED: GABA-1171 PO (09:01)
[2025-01-13] MEDS ORDERED: CYCL10TA20 PO (09:01)
[2025-01-14] MEDS ORDERED: predniSONE 20 MG TAB PO SCH (09:00)
== END 2025-01-13 12:30 | disposition home or self-care (01) ==
LOC: M ED 03:23 → M ED INP 03:24 → M MS4PR 18:03
PROVIDERS: ADMIT Internal Medicine; ATTEND Internal Medicine
DX: M54.50 Low back pain, unspecified (principal); E66.01 Morbid (severe) obesity due to excess calories; E03.9 Hypothyroidism, unspecified; I10 Essential (primary) hypertension; K21.9 Gastro-esophageal reflux disease without esophagitis; Z83.3 Family history of diabetes mellitus; M48.00 Spinal stenosis, site unspecified; G89.29 Other chronic pain; W19.XXXA Unspecified fall, initial encounter; Y92.000 Kitchen of unspecified non-institutional (private) residence as the place of occurrence of the external cause; Y93.G1 Activity, food preparation and clean up; Z79.890 Hormone replacement therapy; Z79.899 Other long term (current) drug therapy
CPT/HCPCS: 36415; 72146; 72148; 80048; 80053; 85027; 96372; 96374; 96375; 96376; 97161; 99285; J0131; J1171; J1885; J2919

== ENCOUNTER 2025-04-05 03:06 | Emergency (ER) | payer OTHER, SELFPAY ==
[~2025-04-05] VITALS: Ht 182.9 cm; Wt 170.4 kg
[~2025-04-05 03:06] MED LIST changes: +ALBU8.5H INH; +CYCL10TA20 PO; +ERGO500029 PO; +GABA-1171 PO
[2025-04-05 03:09] VITALS: TEMP 96.8
[2025-04-05 05:15] LABS: BASO # 0.0 10^3/uL (0.0-0.2); BASO % 0.2 % (0.0-1.0); EOS # 0.1 10^3/uL (0.0-0.5); EOS % 1.2 % (0.0-3.0); LYMPH # 0.6 10^3/uL (1.5-5.0); LYMPH % 12.4 % (24.0-44.0); MONO # 0.4 10^3/uL (0.0-0.8); MONO % 7.9 % (2.0-8.0); NEUTROPHILS # 3.8 10^3/uL (1.5-8.5); NEUTROPHILS % 77.9 % (36.0-66.0); PLATELET COUNT, AUTOMATED 140 10^3/uL (150-450)
[2025-04-05 05:44] LABS: ALT/SGPT 45 U/L (7.0-40); AST/SGOT 34 U/L (<34); CALCIUM LEVEL 8.3 MG/DL (8.5-10.1); CARBON DIOXIDE LEVEL 27 MMOL/L (20-31); CHLORIDE LEVEL 101 MMOL/L (98-107); CREATININE FOR GFR 0.82 MG/DL (0.70-1.30); GLOMERULAR FILTRATION RATE > 90.0 (>60); POTASSIUM SERUM 3.8 MMOL/L (3.5-5.1); SODIUM LEVEL 138 MMOL/L (136-145)
[2025-04-05 06:30] VITALS: BP 147/92
[2025-04-05 06:31] VITALS: O2SAT 98
[2025-04-05] MEDS ORDERED: CEPH500C PO (06:31)
[2025-04-05] MEDS: KETOROLAC 60 MG/2 ML VIAL IM ONE (06:34)
[2025-04-05] MEDS: CEPHALEXIN 500 MG CAP PO ONE (06:41)
== END 2025-04-05 06:45 | disposition home or self-care (01) ==
LOC: M ED 03:06
DX: B08.4 Enteroviral vesicular stomatitis with exanthem (principal); B34.1 Enterovirus infection, unspecified; L01.00 Impetigo, unspecified; I45.81 Long QT syndrome; I10 Essential (primary) hypertension; J45.909 Unspecified asthma, uncomplicated; E03.9 Hypothyroidism, unspecified; Z79.51 Long term (current) use of inhaled steroids; Z79.899 Other long term (current) drug therapy; Z79.2 Long term (current) use of antibiotics
CPT/HCPCS: 71045; 80048; 80076; 83605; 84145; 85025; 87486; 87581; 87633; 87798; 93005; 93041; 94760; 96372; 99285; J1885